=== PATIENT | female | born 1950 | race Caucasian/White ===

== ENCOUNTER 2016-07-21 07:29 | Emergency (ER) | payer OTHER, MEDICARE ==
[2016-07-21 08:19] LABS: BASOPHIL % 1.7 % (0-2); PLATELET COUNT 240 x10^3mcL (130-400); RED CELL DISTRIBUTION WIDTH 12.9 % (11.5-14.5)
[2016-07-21 08:25] LABS: CALCIUM 8.5 mg/dL (8.5-10.1); CARBON DIOXIDE 28.1 mmol/L (21-32); CHLORIDE SERUM 102 mmol/L (98-107); CREATININE SERUM 0.8 mg/dL (0.6-1.0); GFR1 > 60 mL/min; GLUCOSE SERUM 101 mg/dL (74-106); POTASSIUM SERUM 3.6 mmol/L (3.5-5.1); SODIUM SERUM 137 mmol/L (136-145)
[2016-07-21 08:30] LABS: ALBUMIN 3.4 g/dL (3.4-5.0); ALKALINE PHOSPHATASE 80 U/L (46-116); ALT/SGPT 27 U/L (14-59); AST/SGOT 21 U/L (15-37); BILIRUBIN TOTAL 0.39 mg/dL (0.20-1.00); LIPASE 173 IU/L (73-393); TOTAL PROTEIN, SERUM 7.6 g/dL (6.4-8.2)
[2016-07-21 10:48] VITALS: BP 95/68
== END 2016-07-21 10:48 | disposition home or self-care (01) ==
LOC: ED 07:29
PROVIDERS: Emergency Medicine
DX: K52.9 Noninfective gastroenteritis and colitis, unspecified (principal); E86.0 Dehydration
CPT/HCPCS: J1885; J1956; J7030

== ENCOUNTER 2016-07-22 12:43 | Emergency (ER) | payer OTHER, MEDICARE ==
[~2016-07-22] VITALS: Ht 162.6 cm; Wt 57.7 kg
[2016-07-22 15:29] VITALS: BP 109/52
== END 2016-07-22 15:30 | disposition home or self-care (01) ==
LOC: ED 12:43
DX: K52.9 Noninfective gastroenteritis and colitis, unspecified (principal)

== ENCOUNTER 2016-07-27 14:45 | Emergency (ER) | payer OTHER, MEDICARE ==
[~2016-07-27] VITALS: Ht 162.6 cm; Wt 55.9 kg
[2016-07-27 16:39] LABS: BASOPHIL % 0.7 % (0-2); PLATELET COUNT 262 x10^3mcL (130-400); RED CELL DISTRIBUTION WIDTH 12.7 % (11.5-14.5)
[2016-07-27 16:59] LABS: CALCIUM 9.1 mg/dL (8.5-10.1); CARBON DIOXIDE 26.8 mmol/L (21-32); CHLORIDE SERUM 105 mmol/L (98-107); CREATININE SERUM 0.8 mg/dL (0.6-1.0); GFR1 > 60 mL/min; GLUCOSE SERUM 120 mg/dL (74-106); POTASSIUM SERUM 4.3 mmol/L (3.5-5.1); SODIUM SERUM 140 mmol/L (136-145)
[2016-07-27 17:06] LABS: ALBUMIN 3.5 g/dL (3.4-5.0); ALKALINE PHOSPHATASE 61 U/L (46-116); ALT/SGPT 41 U/L (14-59); AMYLASE 39 U/L (25-115); AST/SGOT 42 U/L (15-37); BILIRUBIN TOTAL 0.4 mg/dL (0.20-1.00); LIPASE 125 IU/L (73-393); TOTAL PROTEIN, SERUM 7.2 g/dL (6.4-8.2)
[2016-07-27 18:15] VITALS: BP 113/69
== END 2016-07-27 18:51 | disposition home or self-care (01) ==
LOC: ED 14:45
PROVIDERS: Emergency Medicine
DX: R19.7 Diarrhea, unspecified (principal); R10.30 Lower abdominal pain, unspecified; H53.8 Other visual disturbances; R42 Dizziness and giddiness; R68.83 Chills (without fever); E78.00 Pure hypercholesterolemia, unspecified; J44.9 Chronic obstructive pulmonary disease, unspecified; Z88.1 Allergy status to other antibiotic agents; Z87.19 Personal history of other diseases of the digestive system
CPT/HCPCS: J2270; J2405; J7030; Q9967

== ENCOUNTER 2016-10-11 06:05 | Day surgery (SDC) | payer OTHER, MEDICARE ==
[~2016-10-11] VITALS: Ht 165.1 cm; Wt 56.7 kg
[2016-10-11 06:32] VITALS: BP 99/59
[2016-10-11 09:57] VITALS: BP 102/64
== END 2016-10-11 10:00 | disposition home or self-care (01) ==
LOC: DS 06:05 → GI 07:30 → OR 07:30 → DS 10:00
PROVIDERS: Internal Medicine Gastroenterology
PROC: 0DBH8ZZ Excision of Cecum, Via Natural or Artificial Opening Endoscopic (ICD-10-PCS; principal; 2016-10-11 07:30)
PROC: 0DBN8ZZ Excision of Sigmoid Colon, Via Natural or Artificial Opening Endoscopic (ICD-10-PCS; 2016-10-11 07:30)
DX: R19.7 Diarrhea, unspecified (principal); D12.0 Benign neoplasm of cecum; D12.5 Benign neoplasm of sigmoid colon
CPT/HCPCS: 45378; J1200; J1610; J2250; J2310; J3010; J3490

== ENCOUNTER 2018-11-29 09:40 | Inpatient (IN) | payer OTHER, MEDICARE ==
[~2018-11-29] VITALS: Ht 165.1 cm; Wt 57.3 kg
[2018-11-29 09:45] VITALS: Ht 165.1 cm; Wt 57.3 kg
--- NOTE | 2018-11-29 10:00 | NUR ---
PT CAME TO THE ED TODAY WITH CO PELVIC CRAMPING X 2 DAYS WITH N/V/D. PT STATES HAVING HX OF IBS. PT STATES SHE HAS BENTYL AT HOME WHICH WAS TAKEN AND HELPED WITH HER PAIN AND N/V HAS SUBSIDDED BUT STATES SHE IS STILL HAVING DIARRHEA WITH BLOOD AND THAT IS WHY SHE CAME TO ED. SHE STATES HER SYMPTOMS HAVE BECOME BETTER. PT IS AWAKE AND ALERT. BREATHING EVEN AND UNLABORED. PT RECLINING ON GURNEY WITH NAD. PT IS HOOKED UP TO FULL MONITORS, SIDE RAILS UP, WILL CONTINUE TO MONITOR.
[2018-11-29 10:14] LABS: CALCIUM 8.9 mg/dL (8.5-10.1); CARBON DIOXIDE 31.3 mmol/L (21-32); CHLORIDE SERUM 101 mmol/L (98-107); CREATININE SERUM 0.9 mg/dL (0.6-1.0); GFR1 > 60 mL/min; GLUCOSE SERUM 100 mg/dL (74-106); SODIUM SERUM 139 mmol/L (136-145)
[2018-11-29 10:20] LABS: ALBUMIN 3.6 g/dL (3.4-5.0); ALKALINE PHOSPHATASE 60 U/L (46-116); ALT/SGPT 24 U/L (14-59); AST/SGOT 21 U/L (15-37); BILIRUBIN TOTAL 0.6 mg/dL (0.20-1.00); TOTAL PROTEIN, SERUM 7.5 g/dL (6.4-8.2)
[2018-11-29 10:25] LABS: BASOPHIL % 0.4 % (0-2); PLATELET COUNT 224 x10^3mcL (130-400); RED CELL DISTRIBUTION WIDTH 13.8 % (11.5-14.5)
--- NOTE | 2018-11-29 10:58 | NUR ---
PT TAKEN TO CT VIA WHEELCHAIR WITH NAD
[2018-11-29] MEDS ORDERED: [UNRECOGNIZED DRUG - OTHER] TP (14:54)
[2018-11-29] MEDS ORDERED: DICYCLOMINE HCL10 MG PO (14:54)
[2018-11-29] MEDS ORDERED: KEN025C TOP (14:55)
[2018-11-29] MEDS ORDERED: RECLAST5 MG/100 M IV (14:55)
[2018-11-29] MEDS ORDERED: NASACORT A55 MCG/Ac1 (14:55)
[2018-11-29] MEDS ORDERED: ASPIR 8181 MG PO (14:55)
[2018-11-29] MEDS ORDERED: ZADITOR5 ML OU (14:55)
[2018-11-29] MEDS ORDERED: ALLEGRA ALLERG180 M1 PO (14:56)
[2018-11-29] MEDS ORDERED: CALCIUM 1,0001 EACH PO (14:56)
[2018-11-29] MEDS ORDERED: GLUCOSAMINE1000 MG PO (14:56)
[2018-11-29] MEDS ORDERED: [UNRECOGNIZED DRUG - CODE] SL (14:56)
[2018-11-29] MEDS ORDERED: TURMERIC1 POW (14:56)
[2018-11-29] MEDS ORDERED: FISH OIL1000 MG PO (14:56)
[2018-11-29] MEDS ORDERED: MULTI-VITAMINS1 TAB PO (14:57)
[2018-11-29] MEDS ORDERED: BENEFIBER1 EAC1 PO (14:57)
[2018-11-29] MEDS ORDERED: VITAMIN-D1000 IU PO (14:57)
--- NOTE | 2018-11-29 15:29 | NUR ---
REPORT GIVEN TO AMY HENAO ON MS FOR FURTHER CARE OF PT
[2018-11-29 16:10] VITALS: BP 115/79
--- NOTE | 2018-11-29 16:13 | NUR ---
RECEIVED PT FROM ED VIA [facility]. ORIENTED PT TO ROOM AND SURROUNDINGS. IV NOTED TO LFA PATENT AND INTACT. INSTRUCTED PT ON THE USE OF CALL LIGHT FOR ASSISTANCE. ENDORSED PT TO PRIMARY NURSE EARLENE
--- NOTE | 2018-11-29 16:20 | NUR ---
RECEIVED PATIENT FROM ED VIA [facility], ACCOMPANIED BY [facility] CUEVAS. PATIENT AMBULATORY FROM [facility] W/O ASSIST. YSABEL RN IN ROOM FOR ADDMISSION. PATIENT A/OX4 STATING THAT SHE HAS BEEN HAVING N/V/D WITH BRIGHT RED BLOOD IN STOOL FOR MANY FIVE DAYS. HAS NOT EATEN REGULARLY. PATIENT HAS HISTORY OF IDS, COPD, OSTEOPOROSIS, BLOT CLOTS, AND COLITIS, (CT ABD SHOWED COLITIS) PATIENT IS ADMITTED TO [facility]. NO COMPLAINTS OF PAIN AT THIS TIME, AT BEDSIDE. PATIENT IS VERY GOOD HISTORIAN WITH PAPERWORK ABOUT CONDITIONS AND MEDICATIONS. IV PRESENT TO LEFT FORE ARM INFUSING FLAGYL AND NS AT 80MLS/H. ORRIENTED PATIENT TO CALL LIGHT SYSTEM, AND INSTRUCTED TO USE CALL LIGHT IF NEEDING ASSITANCE, PROVIDED PATIENT WITH SLIP RESISTANT SOCKS FOR AMBULATION. INSTRUCTED PATIENT ABOUT NEED TO COLLECT STOOL SAMPLE AND PROVIDED COLLECTION TOOLS IN RESTROOM.
--- NOTE | 2018-11-29 18:53 | NUR ---
PATIENT HAD BOWEL MOVEMENT COLLECTED FOR STOOL SAMPLE, WATERY CONSITANCY. COLLECTED AND TAKEN TO MICROLAB
--- NOTE | 2018-11-29 19:25 | NUR ---
ENDORSED CARE TO NIGHT NURSE. ALL QUESTIONS ADDRESSED
[2018-11-29 19:45] VITALS: BP 111/54
--- NOTE | 2018-11-29 19:45 | NUR ---
RECEIVED REPORT FROM DAY SHIFT NURSE, PONCHO REYES. PT IS A/O X4. VS: BP 111/54 (79) HR 83 TEMP 99.3 SAO2 97% RR 18. PULSES ARE PALPABLE AND EVEN. NO EDEMA NOTED. BREATHING IS EVEN AND UNLABORED ON RA. LUNG SOUNDS ARE CTA. ABD IS SOFT AND NONDISTENDED. BS ARE ACTIVE IN ALL 4Q. PT HAD BLOODY DIARRHEA TODAY. DENIES ANY N/V AT THIS TIME. BRP. AMBULATORY. STEADY GAIT AND BALANCE. SKIN INTACT. IV TO LFA RUNNING NS @ 80ML/HR. IV IS INTACT, PATENT, AND INFUSING WELL. NO REDNESS OR SWELLING. DENIES PAIN AT THIS TIME. ENCOURAGED PT TO USE CALL LIGHT IF IN NEED OF ANY ASSISTANCE OR IF HAVING ANY DISCOMFORT. BED IN LOWEST POSITION. WILL CONTINUE TO MONIITOR.
--- NOTE | 2018-11-29 21:41 | NUR ---
ASSISTED PT TO THE RESTROOM. DENIES ANY ABD PAIN OR NAUSEA AT THIS TIME. BREATHING IS EVEN AND UNLABORED. CALL LIGHT WITHIN REACH. WILL CONTINUE TO MONITOR.
--- NOTE | 2018-11-29 23:09 | NUR ---
dr. ken made aware of occult blood result- positive.
--- NOTE | 2018-11-30 02:35 | NUR ---
PT IS ASLEEP BUT EASILY AROUSABLE WHEN SPOKEN TO. BREATHING IS EVEN AND UNLABORED. NO SIGNS OF RESP DISTRESS. DENIES PAIN OR NAUSEA AT THIS TIME. CALL LIGHT WITHIN REACH. BED IN LOWEST POSITION. WILL CONTINUE TO MONITOR.
[2018-11-30 05:51] VITALS: BP 105/62
--- NOTE | 2018-11-30 06:13 | NUR ---
PT SLEPT IN INTERVALS THROUGHOUT THE NIGHT. PT COMPLIED WITH NURSING CARE THROUGHOUT SHIFT WITH NO ACUTE EVENTS OVERNIGHT. COMFORT AND SAFETY MEASURES MAINTAINED. ALL NEEDS ASSESSED AND ATTENDED TO. WILL CONTINUE TO MONITOR AND ENDORSE CARE TO DAY SHIFT NURSE.
[2018-11-30 06:27] LABS: BASOPHIL % 0.5 % (0-2); PLATELET COUNT 192 x10^3mcL (130-400); RED CELL DISTRIBUTION WIDTH 13.8 % (11.5-14.5)
[2018-11-30 06:45] LABS: CALCIUM 7.5 mg/dL (8.5-10.1); CARBON DIOXIDE 25.6 mmol/L (21-32); CHLORIDE SERUM 106 mmol/L (98-107); CREATININE SERUM 0.6 mg/dL (0.6-1.0); GFR1 > 60 mL/min; GLUCOSE SERUM 74 mg/dL (74-106); MAGNESIUM 1.7 mg/dL (1.8-2.4); POTASSIUM SERUM 3.7 mmol/L (3.5-5.1); SODIUM SERUM 141 mmol/L (136-145)
--- NOTE | 2018-11-30 07:46 | NUR ---
HANDOFF REPORT RECEIVED. PATIENT AWAKE AND NOT IN ANY DISTRESS. " I FEEL BETTER TODAY" PATIENT STATED. CALL TOVAR WITHIN REACH. BED LOW AND LOCKED.
[2018-11-30 08:38] VITALS: BP 109/52
--- NOTE | 2018-11-30 11:57 | NUR ---
ENCOURAGED AMBULATION. VISITING. CALL TOVAR WITHIN REACH.
--- NOTE | 2018-11-30 14:00 | NUR ---
AMBULATING IN THE HALLWAY WITH SPOUSE. NOT IN ANY DISTRESS.
--- NOTE | 2018-11-30 15:18 | NUR ---
PATIENT SIGNED AMA. NGT AND HEPLOCK REMOVED. NO COMPLAINTS AT THIS TIME. ESCORTED OFF THE FLOOR VIA WHEELCHAIR BY HARRY SORIA.
[2018-11-30 16:09] VITALS: BP 123/61
--- NOTE | 2018-11-30 16:30 | NUR ---
SEEN BY MD DURAN. PLAN FOR COLONOSCOPY TOMORROW. PATIENT AGREEABLE.
--- NOTE | 2018-11-30 18:07 | NUR ---
MOVIPREP ON PACKET STARTED ORDERED. PATIENT DRINKING 240 CC/15-25 MIN. TILL ONE LITER IS FINISHED.
--- NOTE | 2018-11-30 19:20 | NUR ---
HANDOFF REPORT GIVEN TO AMY CARRION. PATIENT IN BATHROOM AND NOT IN ANY DISTRESS.
--- NOTE | 2018-11-30 19:30 | NUR ---
RECEIVED PT IN BED AWAKE, ALERT,ORIENTED X4. NO SOB ON ROOM AIR. BOWEL SOUNDS ACTIVE. PT ON BOWEL PREP AND ALREADY STARTED HAVING BOWEL MOVEMENTS. PER PT STOOL DOES NOT HAVE BLOOD AT THIS TIME AND IS BROWN IN COLOR. W/ IVF NS AT 80 CC/HR VIA LTFA. CALL LIGHT W/IN REACH.
[2018-11-30 20:44] VITALS: BP 126/64
--- NOTE | 2018-12-01 02:00 | NUR ---
OTHER HALF DOSE OF MOVIPREP STARTED AT THIS TIME.
[2018-12-01 05:30] VITALS: BP 117/58
--- NOTE | 2018-12-01 05:31 | NUR ---
PT SLEPT AT SHORT INTERVALS. BOWEL PREP CONTINUED THIS SHIFT. PT'S BM CLEAR WATERY YELLOW AT THIS TIME. PT FOR COLONOSCOPY TODAY. IVF NS INFUSING WELL AT 80 CC/HR VIA LTFA. ALL NEEDS ATTENDED TO. PT VERY PLEASANT AND COOPERATIVE W/ CARE.
[2018-12-01 06:33] LABS: BASOPHIL % 0.6 % (0-2); PLATELET COUNT 199 x10^3mcL (130-400); RED CELL DISTRIBUTION WIDTH 13.7 % (11.5-14.5)
[2018-12-01 06:35] LABS: CALCIUM 7.9 mg/dL (8.5-10.1); CARBON DIOXIDE 19.4 mmol/L (21-32); CHLORIDE SERUM 111 mmol/L (98-107); CREATININE SERUM 0.5 mg/dL (0.6-1.0); GFR1 > 60 mL/min; GLUCOSE SERUM 67 mg/dL (74-106); POTASSIUM SERUM 3.7 mmol/L (3.5-5.1); SODIUM SERUM 145 mmol/L (136-145)
--- NOTE | 2018-12-01 08:00 | NUR ---
SHIFT ASSESSMENT DONE. PATIENT A/A/OX4; BREATHING SOUND CLEAR XAVI. O2 SAT 97% ON RA. BOWEL PREP DONE. YELLOW WATERY BM SEEN. NPO FOR COLONOSCOPY THIS AM. IVF OF NS 80CC/HR; IV SITE TO LFA INTACT. DENIED PAIN. CALL LIGHT IN REACH.
--- NOTE | 2018-12-01 08:15 | NUR ---
WENT TO GI LAB.
--- NOTE | 2018-12-01 10:00 | NUR ---
RECEIVED PATIENT FROM GI LAB; ALERT/ORIENTED; DENIED PAIN. IVF RESUMED. CONTINUE MONITOR.
[2018-12-01 11:26] VITALS: BP 114/55
--- NOTE | 2018-12-01 14:27 | NUR ---
REPORTED CT ABD RESULT TO DR. Lesli DURAN AND ITZEL GOMEZ.
--- NOTE | 2018-12-01 15:06 | NUR ---
VS CHECKED: BP-85/52(63) & 87/47(60), P-84, R-16, T-96.8. GARO ROBBINS MADE AWARE. NO NEW ORDERS RECEIVED.
[2018-12-01 15:07] LABS: BASOPHIL % 0.7 % (0-2); PLATELET COUNT 201 x10^3mcL (130-400); RED CELL DISTRIBUTION WIDTH 13.5 % (11.5-14.5)
[2018-12-01 15:27] VITALS: BP 85/52
--- NOTE | 2018-12-01 17:10 | NUR ---
DENIED DIZINESS AND DISCONFORT. V/S = 97.7-80-17-101/52. O2 SAT 97% ON RA. SKIN WINDOWS [employer] ADMINISTRATOR TOUCH, PINK IN COLOR. STATED NO BM AFTER COLONOSCOPY. STOOL SPECIMEN CONTAINER PLACED ON TOILET. IVF OF NS 80CC/HR CONTINUED. ASKED PATIENT TO REPORT ANY ABD DISCOMFORT AND BLOOD IN BM.
[2018-12-01 17:11] VITALS: BP 101/52
--- NOTE | 2018-12-01 18:55 | NUR ---
C/O HEADACHE ON 07/17. TYLENOL 650MG PO GIVEN. ENDORSED CARE TO NOC NURSE. PATIENT HAD VOID X3 POST COLONOSCOPY. NO BM. TOLERATED CARDIAC DIET.
--- NOTE | 2018-12-01 19:20 | NUR ---
RECEIVED PT IN BED RESTING QUIETLY. SHE IS ALERT,ORIENTED X4. NO SOB ON ROOM AIR. SHE WAS GIVEN TYLENOL FOR HEADACHE BY AM NURSE AND NOW STATES THAT HEADACHE IS GETTING BETTER. BOWEL SOUNDS ACTIVE. SHE DENIES ABDL PAIN. W/ IVF NS AT 80 CC/HR VIA LTFA. CALL LIGHT W/IN REACH.
[2018-12-01 20:39] VITALS: BP 96/49
--- NOTE | 2018-12-01 22:35 | NUR ---
PT RESTING COMFORTABLY IN BED. NO C/O DISCOMFORT.
[2018-12-02 05:46] VITALS: BP 111/64
--- NOTE | 2018-12-02 06:27 | NUR ---
PT STATED SHE SLEPT BETTER LAST NIGHT THAN THE OTHER NIGHT. SHE HAD NO C/O PAIN . NO BOWEL MOVEMENT THIS SHIFT. SHE AMBULATES TO THE RESTROOM W/O DIFFICULTY. PT EXPRESSED DESIRE TO GO HOME. W/ IVF NS AT 80 CC/HR VIA LTFA.
[2018-12-02 06:36] LABS: BASOPHIL % 0.8 % (0-2); PLATELET COUNT 213 x10^3mcL (130-400); RED CELL DISTRIBUTION WIDTH 13.6 % (11.5-14.5)
[2018-12-02 06:44] LABS: CARBON DIOXIDE 23.9 mmol/L (21-32); CHLORIDE SERUM 109 mmol/L (98-107); CREATININE SERUM 0.6 mg/dL (0.6-1.0); GFR1 > 60 mL/min; GLUCOSE SERUM 83 mg/dL (74-106); POTASSIUM SERUM 3.9 mmol/L (3.5-5.1); SODIUM SERUM 144 mmol/L (136-145)
--- NOTE | 2018-12-02 07:35 | NUR ---
PT IS AAOX4. RESP EVEN AND UNLABORED. LUNG SOUNDS CTA. ON R/A. NORMAL S1S2 NOTED. ABDOMEN SOFT, NONTENDER, NONDISTENDED. BOWEL SOUNDS ACTIVE X4 QUADS. PT DENIES N/V/D/CONSTIPATION. SKIN CDI. NO EDEMA. IV CATH TO RFA REMOVED INTACT, SITE WNL. NO S/S OF INFECTION NOTED. PT DENIES PAIN AND DISCOMFORT. CALL LIGHT WITHIN REACH. BED IN LOWEST POSITION.
[2018-12-02 08:17] VITALS: BP 126/61
[2018-12-02] MEDS ORDERED: MIRUD PO (13:11)
[2018-12-02] MEDS ORDERED: ECO81 PO (13:12)
[2018-12-02] MEDS ORDERED: METAMUCIL FIBE3.4 GM PO (13:14)
[2018-12-02 14:30] VITALS: BP 126/61
== END 2018-12-02 14:52 | disposition home or self-care (01) | DRG 391 ==
LOC: ED 09:40 → MU 15:02
PROVIDERS: General Practice; Internal Medicine Gastroenterology; ADMIT Internal Medicine
PROC: 0DBG8ZX Excision of Left Large Intestine, Via Natural or Artificial Opening Endoscopic, Diagnostic (ICD-10-PCS; principal; 2018-12-01 08:00)
DX: K52.9 Noninfective gastroenteritis and colitis, unspecified (principal); N17.0 Acute kidney failure with tubular necrosis; J44.9 Chronic obstructive pulmonary disease, unspecified; E78.5 Hyperlipidemia, unspecified; M81.0 Age-related osteoporosis without current pathological fracture; Z87.891 Personal history of nicotine dependence
CPT/HCPCS: 45378; 87046; 87046-59; C9113; G0378; J1200; J1610; J1956; J2250; J2310; J3010; J3490; J7030; Q0092; Q9967

== ENCOUNTER → 2018-12-04 | Outpatient (CLI) | payer OTHER, MEDICARE ==
[~2018-12-04] MED LIST: ALLEGRA ALLERG180 M1 PO; ASPIR 8181 MG PO; BENEFIBER1 EAC1 PO; CALCIUM 1,0001 EACH PO; DICYCLOMINE HCL10 MG PO; ECO81 PO; FISH OIL1000 MG PO; GLUCOSAMINE1000 MG PO; KEN025C TOP; METAMUCIL FIBE3.4 GM PO; MIRUD PO; MULTI-VITAMINS1 TAB PO; NASACORT A55 MCG/Ac1; RECLAST5 MG/100 M IV; TURMERIC1 POW; VITAMIN-D1000 IU PO; ZADITOR5 ML OU; [UNRECOGNIZED DRUG - CODE] SL; [UNRECOGNIZED DRUG - OTHER] TP
== END | disposition home or self-care (01) ==
LOC: RD 11:29
DX: M25.512 Pain in left shoulder (principal); M54.2 Cervicalgia

== ENCOUNTER 2020-04-06 03:14 | Emergency (ER) | payer OTHER, MEDICARE ==
[~2020-04-06] VITALS: Ht 165.1 cm; Wt 55.3 kg
[2020-04-06 03:26] VITALS: Ht 165.1 cm; Wt 55.3 kg
[2020-04-06 04:36] VITALS: BP 125/62
[2020-04-06 06:37] LABS: microscopic required? YES; urine erythrocyte 3+ (NEGATIVE)
== END 2020-04-06 04:36 | disposition home or self-care (01) ==
LOC: ED 03:14
PROVIDERS: Emergency Medicine
DX: N39.0 Urinary tract infection, site not specified (principal); J44.9 Chronic obstructive pulmonary disease, unspecified; E78.00 Pure hypercholesterolemia, unspecified; M19.90 Unspecified osteoarthritis, unspecified site; Z88.1 Allergy status to other antibiotic agents